=== PATIENT | female | born 1990 | race Caucasian/White ===

== ENCOUNTER 2017-07-20 23:21 | Emergency (ER) | payer SELFPAY ==
[~2017-07-20] VITALS: Ht 162.6 cm; Wt 95.0 kg
== END 2017-07-21 02:18 | disposition home or self-care (01) ==
LOC: MERGE 07-21 00:26 → ED 07-21 00:26
DX: F10.120 Alcohol abuse with intoxication, uncomplicated (principal)
CPT/HCPCS: 99283